=== PATIENT | female | born 1990 | race Two or more races ===

== ENCOUNTER 2017-07-24 20:13 | Emergency (ER) | payer OTHER ==
[~2017-07-24] VITALS: Ht 160 cm; Wt 93.0 kg
[2017-07-24 20:23] VITALS: BP 129/77
[2017-07-24] MEDS ORDERED: FLUORESCEIN OPHTH TEST STRIP. OD ONE (20:45)
[2017-07-24] MEDS ORDERED: TETRACAINE 0.5% OPHTH SOLUTION 4ML BOTTLE. OD ONE (20:45)
[2017-07-24] MEDS ORDERED: OFLO5DRO OD (20:55)
--- NOTE | 2017-07-24 20:56 | PHYS DOC ---
Past Medical History Past Medical History: No Pertinent History Past Surgical History: No Surgical History Alcohol Use: Occasionally Drug Use: None Adult General Chief Complaint Chief Complaint: EYE PROBLEMS HPI HPI Patient is a 27 year old the female presents to the emergency department stating that she is having right eye pain and discomfort. Patient states that she does wear contact lenses. She states that she felt as though something was in her eye earlier. She did try to remove her contact lens]. She states that she continued to feel as though there was something in her eye so she removed the contact lens and left it out. She denies any visual difficulty. She states that her tetanus immunization is up-to-date. Review of Systems Review of Systems Constitutional: Denies fever or chills [] Eyes: Denies change in visual acuity, redness, complaint of right eye pain [] HENT: Denies nasal congestion or sore throat [] Respiratory: Denies cough or shortness of breath [] Cardiovascular: No additional information not addressed in HPI [] GI: Denies abdominal pain, nausea, vomiting, bloody stools or diarrhea [] : Denies dysuria or hematuria [] Musculoskeletal: Denies back pain or joint pain [] Integument: Denies rash or skin lesions [] Neurologic: Denies headache, focal weakness or sensory changes [] Endocrine: Denies polyuria or polydipsia [] Current Medications Current Medications Current Medications Medications (Trade) Dose Ordered Sig/Vanessa Start Time Stop Time Status Last Admin Dose Admin Fluorescein Sodium (Ful-Dilia) 1 strip 1X ONCE 07/24/17 20:45 07/24/17 20:46 DC 07/24/17 20:43 1 STRIP Tetracaine HCl (Tetracaine) 1 drop 1X ONCE 07/24/17 20:45 07/24/17 20:46 DC 07/24/17 20:43 1 DROP Allergies Allergies Allergies Coded Allergies Type Severity Reaction Last Updated Verified latex Allergy Intermediate RASH 07/24/17 Yes Physical Exam Physical Exam Constitutional: Well developed, well nourished, no acute distress, non-toxic appearance. [] HENT: Normocephalic, atraumatic, bilateral external ears normal, oropharynx moist, no oral exudates, nose normal. [] Eyes: PERRLA, EOMI, conjunctiva normal, no discharge. [] Neck: Normal range of motion, no tenderness, supple, no stridor. [] Cardiovascular: [place] warm and dry Lungs & Thorax: No respiratory distress noted Skin: Warm, dry, no erythema, no rash. [] Neurologic: Alert and oriented X 3, normal motor function, normal sensory function, no focal deficits noted. [] Psychologic: Affect normal, judgement normal, mood normal. [] Current Patient Data Vital Signs Vital Signs Date Time Temp Pulse Resp B/P (MAP) Pulse Ox O2 Delivery O2 Flow Rate FiO2 07/24/17 20:23 97.8 68 22 97 Room Air 97.8 EKG EKG [] Radiology/Procedures Radiology/Procedures [] Course & Med Decision Making Course & Med Decision Making Pertinent Labs and Imaging studies reviewed. (See chart for details) Tetracaine was placed into the right eye with the eyelid inverted with no foreign body noted. Fluorescein was placed into the eye with uptake noted between 11 and 12:00 area. Patient will be provided with ofloxacin to the fact that she does wear contact lenses. Recommended Tylenol and ibuprofen for pain and discomfort. Recommended sunglasses when she is out in the bright lights. 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 Patient was recommended Tylenol or ibuprofen for pain and discomfort. She will be provided with a work up for 2 days in case she desires to use them. Patient agrees with discharge instructions treatment regimens and follow-up recommendations. Signs and symptoms to return back to the emergency department has been provided. All questions and concerns been answered at the patient's bedside. [] Dragon Disclaimer Dragon Disclaimer This electronic medical record was generated, in whole or in part, using a voice recognition dictation system. Departure Departure Impression: Primary Impression: Right corneal abrasion Disposition: HOME, SELF-CARE Condition: STABLE Referrals: NO PCP (PCP) PADMINI RODRIGUEZ MD Patient Instructions: Eye - Corneal Abrasion, Toyn-nx-Tavy Additional Instructions: Activity as tolerated. Tylenol or ibuprofen for pain and discomfort. Medication as prescribed. Protect the eye from bright lights. He may do so by using sunglasses. Follow-up with an [place] man in the next 2-3 days. Return back to emergency prior signs symptoms that become worse. Scripts Ofloxacin (OCUFLOX) 5 Ml Drops 1-2 DROP OD BID, #1 BOTTLE Prov: OSMAR VIVEROS APRN 07/24/17 Problem Qualifiers Primary Impression: Right corneal abrasion Encounter type: initial encounter Qualified Codes: S05.01XA - Injury of conjunctiva and corneal abrasion without foreign body, right eye, initial encounter OSMAR VIVEROS APRN Jul 24, 2017 20:55
== END 2017-07-24 20:57 | disposition home or self-care (01) ==
LOC: ER 20:13
DX: S05.01XA Injury of conjunctiva and corneal abrasion without foreign body, right eye, initial encounter (principal); Z91.040 Latex allergy status; X58.XXXA Exposure to other specified factors, initial encounter; Y93.89 Activity, other specified; Y99.8 Other external cause status; Y92.89 Other specified places as the place of occurrence of the external cause
CPT/HCPCS: 99283